=== PATIENT | male | born 1975 | race African-American/Black ===

== ENCOUNTER 2023-04-24 03:26 | Emergency (ER) | payer OTHER ==
[~2023-04-24] VITALS: Ht 188 cm; Wt 67.7 kg
[2023-04-24 03:52] VITALS: O2SAT 100
[2023-04-24] MEDS ORDERED: LIDOCAINE HCL/PF 1% 10 MG/ML 5ML VIAL INFIL ONE (05:30)
[2023-04-24] MEDS ORDERED: CEPH500T PO (05:47)
[2023-04-24] MEDS ORDERED: SULF1TAB48 PO (05:47)
[2023-04-24 06:30] VITALS: BP 105/66; PULSE 75; RESP 18; TEMP 98
== END 2023-04-24 06:30 | disposition home or self-care (01) ==
LOC: ER 03:50
DX: L03.111 Cellulitis of right axilla (principal); L02.411 Cutaneous abscess of right axilla
CPT/HCPCS: 10060; 99282; J3490; 99284